=== PATIENT | male | born 1965 | race Hispanic/Latino ===

== ENCOUNTER 2018-11-02 03:40 | Inpatient (IN) | payer OTHER ==
[2018-11-02] MEDS ORDERED: Ondansetron PF 4 MG/2 ML Vial IVP PRN ×2 (06:33→07:50)
[2018-11-02] MEDS ORDERED: Ondansetron ODT 4 MG TAB SL PRN ×2 (06:33→07:50)
[2018-11-02] MEDS ORDERED: Dextrose 5 % And 0.9 % NaCl 1,000 ML IV SCH (06:45)
--- NOTE | 2018-11-02 06:56 | ULT ---
GALLBLADDER ULTRASOUND: CLINICAL HISTORY: Pain. FINDINGS: There is a nodular contour of the liver with a coarsened echotexture. No shadowing cholelithiasis. The gallbladder wall is thickened, measuring 4-5 mm. Hernandez sign is reported as positive. The commo n duct is normal at 2 mm in diameter. No ascites is seen. IMPRESSION: 1. Thickened gallbladder wall and positive Hernandez sign. No shadowing cholelithiasis. Correlate cli nically for signs/symptoms of cholecystitis. 2. Nodular contour of the liver. This can be seen in the setting of cirrhotic morphology. Recommen d appropriate clinical followup. POS: LISA
[2018-11-02 07:36] VITALS: BMI 33.0
[2018-11-02] MEDS ORDERED: Artificial Tears 18 DROP/0.9 ML EA EYE PRN (07:50)
[2018-11-02] MEDS ORDERED: Sodium Chloride 0.65% Nasal 44 ML BOT EA NARE PRN (07:50)
[2018-11-02] MEDS ORDERED: Calcium Carbonate 500 MG ChewTAB PO PRN (07:50)
[2018-11-02] MEDS ORDERED: HumaLOG 300 UNITS/3 ML VIAL SC PRN (07:50)
[2018-11-02] MEDS ORDERED: Bisacodyl 10 MG SUPP PR PRN (07:50)
[2018-11-02] MEDS ORDERED: hydrALAZINE 20 MG/ML VIAL SLOW IVP PRN (07:50)
[2018-11-02] MEDS ORDERED: Dextrose 5% in Water 1,000 ML IV PRN (07:50)
[2018-11-02] MEDS ORDERED: Senokot S 8.6-50 MG TAB PO PRN (07:50)
[2018-11-02] MEDS ORDERED: Dextrose 50% Abboject 50 ML SYRINGE SLOW IVP PRN (07:50)
[2018-11-02] MEDS ORDERED: Acetaminophen 325 MG TAB PO PRN (07:50)
[2018-11-02 08:27] LABS: INR-International Normal Ratio 1.1; PTT 34.6 SEC (22.9-36.1); Prothrombin Time 14.5 SEC (12.0-14.7)
[2018-11-02 08:36] LABS: ALT (SGPT) 42 U/L (8-55); AST (SGOT) 47 U/L (5-34); Albumin 3.5 g/dL (3.5-5.0); Alkaline Phosphatase 153 U/L (40-150); Anion Gap 9 mmol/L (10-20); BUN (Urea Nitrogen) 10 mg/dL (8.4-25.7); Bilirubin, Total 1.6 mg/dL (0.2-1.2); Calc. Creatinine Clearance 131 mL/min (70-130); Calcium 9.1 mg/dL (7.8-10.44); Carbon Dioxide 26 mmol/L (22-29); Chloride 105 mmol/L (98-107); Estimated GFR-MDRD Greater than 90; Globulin 3.7 g/dL (2.4-3.5); Glucose 210 mg/dL (70-105); Potassium 3.8 mmol/L (3.5-5.1); Protein, Total 7.2 g/dL (6.0-8.3); Sodium 136 mmol/L (136-145)
[2018-11-02] MEDS: Sodium Chloride 0.9% 1,000 ML IV SCH (08:47)
[2018-11-02] MEDS: Pantoprazole 40 MG VIAL IVP SCH ×2 (08:50→22:38)
[2018-11-02 08:52] LABS: #Eosinphils 0.1 thou/uL (0.0-0.7); #Lymphocytes 1.1 thou/uL (1.20-3.40); #Monocytes 0.4 thou/uL (0.11-0.59); #Neutrophils 4.2 thou/uL (1.40-6.50); %Basophils 0.2 % (0.0-1.0); %Eosinophils 1.3 % (0.0-10.0); %Monocytes 7.6 % (0.0-10.0); %Neutrophils 71.9 % (42.0-75.0); Hemoglobin 12.2 g/dL (14.0-18.0); MDiff Complete? YES; Mean Corpuscular HGB CONC 31.2 g/dL (32.0-36.0); Mean Corpuscular Hemoglobin 24.8 pg (27.0-31.0); Mean Corpuscular Volume 79.3 fL (78.0-98.0); Mean Platelet Volume 11.4 fL (7.4-10.4); Microcytosis SLIGHT = 6-15 cells (100X) (0-5/hpf); Platelet Count 69 thou/uL (130-400); Platelet Morphology Comment Appears Decreased; Polychromasia SLIGHT = 2-3 cells (100X) (0-2/hpf); Red Blood Cell (RBC) Count 4.92 mill/uL (4.70-6.10); White Blood Cell (WBC) Count 5.8 thou/uL (4.8-10.8)
[2018-11-02 08:54] LABS: HBSAg Index 0.31 S/CO (0-0.99); Hep A IgM AB Non-Reactive (NonReactive); Hep A IgM S/CO 0.13 S/CO (0-0.79); Hep B Surf Ag Non-Reactive S/CO (NonReactive)
[2018-11-02 10:07] LABS: HBCM Index 1.18 S/CO (0-0.79); Hep C IgG Ab Reflex HepC Qnt (NonReactive); Hepatitis B Core IgM Abs Equivocal (NonReactive)
[2018-11-02] MEDS: HumaLOG 300 UNITS/3 ML VIAL SC PRN (11:27)
--- NOTE | 2018-11-02 11:41 | HP ---
PRIMARY CARE PHYSICIAN: [facility] Call admission. REASON FOR ADMISSION: Transfer from [facility] for hematemesis. HISTORY OF PRESENT ILLNESS: A 53-year-old male, who has underlying history of previous alcoholism as well as chronic hepatitis C and cirrhosis of liver with portal hypertension, who was having abdominal pain predominantly in right upper quadrant, which was started yesterday. It was constant and sharp and the pain was increasing and that is why he decided to go to [facility], and subsequently, he was taken to [facility], where he was evaluated. Before coming to [facility] when he was in [facility], he had an episode of vomiting which was containing of blood and the patient also had black tarry stool as per him. The patient reports that 2 to 3 weeks ago, he went to [facility], where he had an EGD and banding was performed. He is supposed to go to followup yesterday, but he was not able to make it and he was brought to emergency room. In the emergency room, the patient had a CT of the abdomen which showed gallbladder wall thickening. He had abnormal LFT and subsequently, this patient was transferred to our emergency room and he was admitted to the surgical floor because of gallbladder wall thickening. When I saw this patient, he was not having any upper abdominal pain. He did not have any further hematemesis. He was hemodynamically stable. He was afebrile. REVIEW OF SYSTEMS: CONSTITUTIONAL: Negative for weight loss or gain, ability to conduct usual activities. SKIN: Negative for rash, itching. EYES: Negative for double vision, pain. ENT/MOUTH: Negative for nose bleeding, neck stiffness, pain, tenderness. CARDIOVASCULAR: Negative for palpitations, dyspnea on exertion, orthopnea. RESPIRATORY: Negative for shortness of breath, wheezing, cough, hemoptysis, fever or night sweats. GASTROINTESTINAL: Negative for poor appetite, abdominal pain, heartburn, nausea , vomiting, constipation, or diarrhea. GENITOURINARY: Negative for urgency, frequency, dysuria, nocturia. MUSCULOSKELETAL: Negative for pain, swelling. NEUROLOGIC/PSYCHIATRIC: Negative for anxiety, depression. ALLERGY/IMMUNOLOGIC: Negative for skin rash, bleeding tendency. Please see my HPI for pertinent positives and negatives. All other review of systems was reviewed and negative except as mentioned in HPI. PAST MEDICAL HISTORY: Hypertension, diabetes type 2, dyslipidemia, esophageal varices, gastroesophageal reflux disease, chronic hepatitis C, and obesity. PAST SURGICAL HISTORY: Esophageal varices banding. PAST PSYCHIATRIC HISTORY: Anxiety disorder and bipolar disorder. SOCIAL HISTORY: The patient has previous history of alcoholism, but he quit drinking in 2010. He also has a history of abused heroin. He quit everything when he was incarcerated and he was in shelter for almost 10 years. FAMILY HISTORY: cirrhosis of liver runs in his family. ALLERGIES: NO KNOWN DRUG ALLERGIES. CURRENT HOME MEDICATIONS: 1. Aspirin 81 mg daily. 2. Lasix 20 mg twice daily. 3. Lisinopril 10 mg daily. 4. Novolin insulin 30 units subcu daily. 5. Potassium chloride 10 mEq p.o. daily. 6. Pravastatin 40 mg p.o. nightly. EMERGENCY ROOM COURSE: The patient has been given IV fluid. PHYSICAL EXAMINATION: VITAL SIGNS: Currently, blood pressure 153/84, pulse 60, respiratory rate 20, temperature 98.1, and saturation 95% on room air. Weight 81.7 kg. GENERAL: The patient is currently alert, awake, and in no obvious acute distress. HEENT: Head; normocephalic and atraumatic. Eyes; pupils are round and reactive to light. Mild icterus noted. NECK: Supple. No JVD. No thyromegaly. No carotid bruit. No jugular venous distention. LUNGS: Clear to auscultation without any rhonchi or rales. CARDIAC: S1 and S2 regular. No murmur. No gallop. No rub. ABDOMEN: Soft. Obesity present. No obvious right upper quadrant tenderness. No Organomegaly. BACK: Examination unremarkable. No CVA tenderness. EXTREMITIES: Upper extremities; passive movement of all joints are normal. Lower extremities; no edema. Good distal pulsation. SKIN: No skin rash. The patient has multiple tattoos . NEUROLOGIC: Nonfocal examination. No asterixis. SIGNIFICANT LABORATORY DATA: Abdominal ultrasound showing thickened gallbladder wall. Positive Hernandez sign. CBC; WBC 5.8, hemoglobin 12.2, and platelets are 69. INR 1.1. BMP; sodium 136, potassium 3.8, chloride 105, carbon dioxide 26, anion gap 9, BUN 10, creatinine 0.75, glucose 210, calcium 9.1. LFT; AST 47, ALT 42, alkaline phosphatase 153, albumin 3.9. Hepatitis C positive. Hepatitis IgM equivocal. ASSESSMENT/PLAN: 1. Hematemesis with history of cirrhosis of liver and esophageal varices, required recent banding. Currently, hemoglobin is stable. We will consult caretaker resort. We will defer upper endoscopy and banding to caretaker resort. As the patient has underlying history of cirrhosis, we will give him prophylactic Rocephin to prevent SBP. The patient will be treated with octreotide drip and Protonix 40 mg IV b.i.d. 2. Right upper quadrant pain. The patient has gallbladder wall thickening, most likely related with chronic liver disease. I spoke with Dr. Wood and he is not thinking that this patient has any gallbladder problem. The patient does not have any fever. He does not have any chronic dyspepsia symptoms. We will ask GI for their opinion. We will control his pain with pain medication as needed. 3. Diabetes type 2. We will continue with insulin as per sliding scale per protocol. Diabetic diet will be given. We will resume his Novolin N 30 units subcu in the morning and 20 units in the evening. 4. Thrombocytopenia likely due to chronic hepatitis and cirrhosis. 5. Hypertension. We will continue lisinopril 10 mg p.o. daily. 6. Dyslipidemia. We will continue pravastatin 40 mg p.o. nightly. 7. Obesity with BMI of 33. Dietary education given. Weight loss education given. 8. Deep venous thrombosis prophylaxis. SCD boots. No Lovenox because of low platelet count. GI prophylaxis. The patient is already on Protonix therapy. CODE STATUS: The patient is full code. The patient does not have any surrogate decision maker. DISPOSITION PLAN: Based on clinical course and GI recommendation, plan of care discussed with the patient in detail. At this point, we will start with clear liquid diet. Job ID: [id number] [facility]
[2018-11-02] MEDS ORDERED: PROPOFOL 200 MG/20 ML VIAL ONE (12:00)
[2018-11-02] MEDS: cefTRIAXone\\ROCEPHIN 1 GM in Sodium Chloride 0.9% 100 ML IVPB SCH (12:21)
[2018-11-02] MEDS: Octreotide Acetate 1,250 MCG in Sodium Chloride 0.9% 250 ML 250 ML IVPB SCH (12:32)
[2018-11-02 13:42] LABS: Bilirubin Negative (Negative); Blood, Urine Negative (Negative); Clarity Turbid (Clear); Glucose, Urine (Dipstick) Normal (Negative); Leukocyte Negative Leu/uL (Negative); Nitrite Negative (Negative); Protein, Urine (Dipstick) Negative (Neg-Trace); RBC/HPF None Seen HPF (0-3)
[2018-11-02 13:58] LABS: Bacteria/HPF 4+ HPF (None Seen); Squamous Epithelial 0-3 HPF (0-3); WBC/HPF 0-3 HPF (0-3)
[2018-11-02] MEDS ORDERED: Promethazine HCl 25 MG/ML VIAL IM PRN (20:31)
[2018-11-02] MEDS ORDERED: Promethazine HCl 25 MG/ML VIAL SLOW IVP PRN (20:31)
[2018-11-02] MEDS ORDERED: Ondansetron HCl/PF 4 MG/2 ML Vial IVP PRN (20:31)
[2018-11-02] MEDS ORDERED: Ondansetron PF 4 MG/2 ML Vial ONE (20:32)
[2018-11-02] MEDS: Atorvastatin Calcium 10 MG TAB PO SCH (22:35)
[2018-11-02] MEDS: NPH, Human Insulin Isophane 300 UNIT/3 ML VIAL SQ SCH (22:36)
[2018-11-03] MEDS: Sodium Chloride 0.9% 1,000 ML IV SCH ×2 (01:40→17:05)
[2018-11-03] MEDS: HumaLOG 300 UNITS/3 ML VIAL SC PRN ×3 (06:31→17:05)
--- NOTE | 2018-11-03 06:43 | PRG ---
DATE OF SERVICE: 11/03/2018 HISTORY OF PRESENT ILLNESS: This is a 53-year-old Latin-[place]ib[place] male who is inmate at [facility]. He was admitted because of abdominal pain and also history of vomiting some blood. The patient told that he vomited a small amount of blood. He had an EGD done yesterday, which revealed no active bleeding. He is on IV octreotide. He is tolerating diet. He has no abdominal pain. No nausea. No vomiting. OBJECTIVE: GENERAL: Appears comfortable. VITAL SIGNS: Stable. Afebrile. Pulse is 63, blood pressure is 119/72. CARDIOVASCULAR SYSTEM/LUNGS: Within normal limits. ABDOMEN: Soft and very mildly tender. There is no rebound or guarding. RECOMMENDATIONS: 1. Taper of octreotide. 2. Consider discharge in next 24 hours. Job ID: [id number]
[2018-11-03] MEDS: NPH, Human Insulin Isophane 300 UNIT/3 ML VIAL SQ SCH ×2 (08:04→21:17)
[2018-11-03] MEDS: Lisinopril 10 MG TAB PO SCH (08:04)
[2018-11-03] MEDS: Pantoprazole 40 MG VIAL IVP SCH ×2 (08:04→21:09)
--- NOTE | 2018-11-03 08:18 | CON ---
DATE OF CONSULTATION: 11/02/2018 REASON FOR CONSULTATION: Abdominal pain, nausea, vomiting, and history of vomiting blood early this morning. HISTORY OF PRESENT ILLNESS: Mr. Nolan Islas is a 53-year-old Latin-Liberian male who was an inmate at [facility] in [place]. The patient has history of liver cirrhosis due to combination of alcohol abuse and chronic hepatitis C. He also has history of portal hypertension and esophageal varices in the past. He usually goes to [facility] for his medical care. He tells me he has had multiple EGDs in [place] over the years. The last one was done about 3 weeks ago. The patient was doing well until last night or early this morning. He started having severe abdominal pain over the epigastric area. He also felt nauseous and threw up only one time. He tells me the vomiting was a small amount of blood, no large volume. He has had no melena. He came to the ER of this hospital because of abdominal pain and also history of hematemesis. His blood count is reasonably stable except slightly low 12.2, hematocrit 39.1. His abdominal pain was sudden in onset, which began early this morning. The pain was in epigastric area. The pain was like sharp pain. He has had 1 time nausea and vomiting and vomited some small amount of blood. He has not had a stool today. He denies any dizziness, chest pain etc. No relevant history. MEDICAL ILLNESSES: 1. Liver cirrhosis, due to alcohol abuse and also chronic hep C. 2. Portal hypertension, esophageal varices with previous banding. OTHER MEDICAL ILLNESS: Include: 1. Hypertension. 2. Type 2 diabetes. 3. Hyperlipidemia. 4. Chronic acid reflux. 5. Obesity. 6. Chronic hep C. 7. Liver cirrhosis and esophageal varices. PSYCHIATRIC HISTORY: History of anxiety disorder and bipolar disorder. SOCIAL HISTORY: The patient lives in the jail probably over 10 years. He smoked before, but not anymore. He has had no alcohol over the past 10+ years. FAMILY HISTORY: Liver cirrhosis. ALLERGIES: NONE. MEDICATIONS: List reviewed, which include: 1. Aspirin. 2. Lasix. 3. Lisinopril. 4. Novolin insulin 30 units once daily. 5. Potassium chloride. 6. Pravastatin 40 once daily. REVIEW OF SYSTEMS: A 10-point system reviewed and remarkable for: Abdominal pain, nausea, vomiting and vomiting small amount of blood. Otherwise, he has , also abdominal pain has resolved and he has no more abdominal pain. PHYSICAL EXAMINATION: GENERAL: The patient is a well-built, muscular individual. He is obese, appears comfortable. ANAI: SIGNS: Pulse is 60, blood pressure is 150/84. Conjunctivae clear. NECK: Supple. No adenitis or thyromegaly noted. CARDIOVASCULAR: First and second heart sounds heard. LUNGS: Clear to auscultation. ABDOMEN: Soft. Abdomen is mildly tender over the epigastric area. There are no organomegaly or masses. No rebound or guarding. Bowel sounds normal. EXTREMITIES: Reveal no edema. MANAGER QUALITY IMPROVEMENT: No signs of encephalopathy. He is awake, alert, and communicative. He is a good historian. LABORATORY DATA: CBC; WBC 5800, hemoglobin 12.2, hematocrit 39.1, MCV 79.3, platelet count 69,000, polymorphs 71, lymphocytes 19, monocytes 7. Chemistry panel; sodium 136, potassium 3.8, chloride 105, bicarb 26, BUN is 10, creatinine 0.75, glucose is 210, calcium 9.1, bilirubin 1.6, AST 47, ALT 42, alkaline phosphatase 153, AFP 25.8, it is high. He had an abdominal sonogram done today here. The abdominal sonogram shows thickened gallbladder wall. No gallstones. Also the liver appears very nodular, he does have liver cirrhosis. CLINICAL IMPRESSION: A 53-year-old male with abdominal pain, nausea and vomiting. The abdominal pain has resolved. He has vomited a small amount of blood. He has had variceal banding about 3 weeks ago in [place]. Apparently, he has had some variceal banding done in the past. The current episode of bleeding appears to be very small. It is possible he could have some Antoinette-Zamora tear. The abdominal pain etiology is unclear as the abdomen films showed no gallstone, but thickened gallbladder wall. 1. Hypertension. 2. Diabetes. 3. Hyperlipidemia. 4. Liver cirrhosis. 5. Esophageal varices, status post banding. RECOMMENDATION: 1. Follow up H and H. 2. Emergent EGD later on today and I will make further recommendations. Job ID: [id number]
[2018-11-03 08:58] LABS: ALT (SGPT) 51 U/L (8-55); AST (SGOT) 61 U/L (5-34); Albumin 3.6 g/dL (3.5-5.0); Alkaline Phosphatase 122 U/L (40-150); Anion Gap 9 mmol/L (10-20); BUN (Urea Nitrogen) 10 mg/dL (8.4-25.7); Bilirubin, Total 1.7 mg/dL (0.2-1.2); Calc. Creatinine Clearance 114 mL/min (70-130); Calcium 9.2 mg/dL (7.8-10.44); Carbon Dioxide 28 mmol/L (22-29); Chloride 105 mmol/L (98-107); Estimated GFR-MDRD Greater than 90; Glucose 168 mg/dL (70-105); Potassium 4.4 mmol/L (3.5-5.1); Protein, Total 7.6 g/dL (6.0-8.3); Sodium 138 mmol/L (136-145)
[2018-11-03 09:04] LABS: #Eosinphils 0.1 thou/uL (0.0-0.7); #Lymphocytes 1.3 thou/uL (1.20-3.40); #Monocytes 0.5 thou/uL (0.11-0.59); #Neutrophils 3.6 thou/uL (1.40-6.50); %Basophils 0.7 % (0.0-1.0); %Eosinophils 2.5 % (0.0-10.0); %Lymphocytes 22.8 % (21.0-51.0); %Monocytes 9.4 % (0.0-10.0); %Neutrophils 64.5 % (42.0-75.0); Hemoglobin 12.6 g/dL (14.0-18.0); Mean Corpuscular HGB CONC 30.8 g/dL (32.0-36.0); Mean Corpuscular Hemoglobin 24.7 pg (27.0-31.0); Mean Corpuscular Volume 80.4 fL (78.0-98.0); Mean Platelet Volume 11.1 fL (7.4-10.4); Platelet Count 72 thou/uL (130-400); RBC Distribution Width 15.8 % (11.5-14.5); Red Blood Cell (RBC) Count 5.08 mill/uL (4.70-6.10); White Blood Cell (WBC) Count 5.5 thou/uL (4.8-10.8)
--- NOTE | 2018-11-03 11:14 | OP ---
DATE OF PROCEDURE: 11/02/2018 OPERATIVE PROCEDURE: Esophagogastroduodenoscopy. PREOPERATIVE DIAGNOSES: Abdominal pain, history of vomiting blood, and also history of esophageal varices. POSTOPERATIVE DIAGNOSES: 1. No active bleeding seen during endoscopy. 2. Esophageal varices nonbleeding and no stigmata of bleeding seen. 3. Portal gastropathy. DESCRIPTION OF PROCEDURE: The patient was placed on his left lateral position and was given sedation by Anesthesia Department. A Pentax video gastroscope under direct vision passed down to the oropharynx to the GE junction into the stomach and subsequently into the descending duodenum. The patient's esophagus appeared completely normal. He had no sign of bleeding seen. He does have does not show any stigmata of bleeding. . The GE junction, no pathology. The stomach was completely empty of any blood. Does have a for gastroparesis. The gastric fundus, no gastric varices seen. The gastric body and gastric antrum, no other pathology. The scope advanced to the duodenal bulb and descending duodenum. No pathology seen. The stomach decompressed and the scope removed. RECOMMENDATIONS: 1. Diet as tolerated. 2. Follow up H and H. 3. From GI standpoint, he can be discharged back to the [facility] in the next 24 hours. Job ID: [id number]
[2018-11-03] MEDS: cefTRIAXone\\ROCEPHIN 1 GM in Sodium Chloride 0.9% 100 ML IVPB SCH (11:23)
--- NOTE | 2018-11-03 11:33 | PDOC.PN ---
- Subjective Encounter Start Date: 11/03/18 Encounter Start Time: 07:10 Patient seen and examined. he has lower abdominal discomfort, no bleeding, No overnight events - Objective Resuscitation Status - Order Detail: 11/02/18 07:45 Resuscitation Status Routine Resuscitation Status: FULL: Full Resuscitation MAR Reviewed: Yes Vital Signs & Weight: Vital Signs (12 hours) Temp Pulse Resp BP BP Pulse Ox 11/03/18 11:30 98.1 F 76 18 132/82 91 L 11/03/18 08:04 145/92 H 11/03/18 07:43 97.6 F 60 18 145/92 H 90 L 11/03/18 04:23 98 F 63 16 119/72 94 L 11/03/18 00:00 97.9 F 62 16 121/78 93 L Weight Weight 181 lb I&O: 11/02/18 11/03/18 11/04/18 06:59 06:59 06:59 Intake Total 1585 860 Output Total 575 950 Balance 1010 -90 Result Diagrams: 11/03/18 08:20 11/03/18 08:20 Additional Labs: Accuchecks 11/03/18 11/03/18 11/02/18 10:34 06:32 22:37 POC Glucose 184 H 169 H 133 H 11/02/18 16:21 POC Glucose 124 H Phys Exam - Physical Examination Constitutional: NAD HEENT: moist MMs, sclera anicteric Neck: no JVD, supple Respiratory: no wheezing, no rales, no rhonchi Cardiovascular: RRR, no significant murmur, no rub Gastrointestinal: soft, no distention, positive bowel sounds lower abdominal subjective discomfort Musculoskeletal: no edema, pulses present Neurological: non-focal, normal sensation Lymphatic: no nodes Psychiatric: normal affect, A&O x 3 Skin: no rash, normal turgor Dx/Plan (1) Esophageal varices Code(s): I85.00 - ESOPHAGEAL VARICES WITHOUT BLEEDING Status: Acute (2) RUQ abdominal pain Code(s): R10.11 - RIGHT UPPER QUADRANT PAIN Status: Acute (3) Upper GI bleed Code(s): K92.2 - GASTROINTESTINAL HEMORRHAGE, UNSPECIFIED Status: Acute (4) Chronic hepatitis C Code(s): B18.2 - CHRONIC VIRAL HEPATITIS C Status: Chronic (5) Cirrhosis of liver Code(s): K74.60 - UNSPECIFIED CIRRHOSIS OF LIVER Status: Chronic (6) Diabetes type 2, controlled Code(s): E11.9 - TYPE 2 DIABETES MELLITUS WITHOUT COMPLICATIONS Status: Chronic (7) Dyslipidemia Code(s): E78.5 - HYPERLIPIDEMIA, UNSPECIFIED Status: Chronic (8) Obesity (BMI 30.0-34.9) Code(s): E66.9 - OBESITY, UNSPECIFIED Status: Chronic - Plan cont current plan of care * today will wean off octreotide drip * medication reviewed as below * symptomatic treatment * empiric rocephin * continue protonix * GI recommendation noted. Review of Systems - Review of Systems ENT: negative: Ear Pain, Ear Discharge, Nose Pain, Nose Discharge, Nose Congestion, Mouth Pain, Mouth Swelling, Throat Pain, Throat Swelling, Other Respiratory: negative: Cough, Dry, Shortness of Breath, Hemoptysis, SOB with Excertion, Pleuritic Pain, Sputum, Wheezing Cardiovascular: negative: chest pain, palpitations, orthopnea, paroxysmal nocturnal dyspnea, edema, light headedness, other Gastrointestinal: Abdominal Pain. negative: Nausea, Vomiting, Diarrhea, Constipation, Melena, Hematochezia, Other Genitourinary: negative: Dysuria, Frequency, Incontinence, Hematuria, Retention , Other Musculoskeletal: negative: Neck Pain, Shoulder Pain, Arm Pain, Back Pain, Hand Pain, Leg Pain, Foot Pain, Other Skin: negative: Rash, Lesions, Johan, Bruising, Other - Medications/Allergies Allergies/Adverse Reactions: Allergies Allergy/AdvReac Type Severity Reaction Status Date / Time peanut Allergy Intermediate Swollen Verified 11/02/18 07:38 Lips Medications: Current Medications Acetaminophen (Tylenol) 650 mg PO Q4H PRN PRN Reason: Headache/Fever/Mild Pain (1-3) Artificial Tears (Tears Naturale) 2 drop EA EYE PRN PRN PRN Reason: Dry Eyes Atorvastatin Calcium (Lipitor) 10 mg PO HS VAUGHN Last Admin: 11/02/18 22:35 Dose: 10 mg Bisacodyl (Dulcolax) 10 mg GA DAILYPRN PRN PRN Reason: Constipation Calcium Carbonate (Tums) 1,000 mg PO Q4H PRN PRN Reason: Heartburn or Indigestion Dextrose/Water (Dextrose 50%) 25 gm SLOW IVP PRN PRN PRN Reason: Hypoglycemia Glucagon (Glucagon) 1 mg IM PRN PRN PRN Reason: Hypoglycemia Hydralazine HCl (Apresoline) 10 mg SLOW IVP Q4H PRN PRN Reason: SBP > 180 and HR < 70 Dextrose/Water (D5w) 1,000 mls @ 0 mls/hr IV .Q0M PRN PRN Reason: Hypoglycemia Sodium Chloride (Normal Saline 0.9%) 1,000 mls @ 70 mls/hr IV .[id number] [facility] Last Admin: 11/03/18 01:40 Dose: Not Given Octreotide Acetate 1,250 mcg/ (Sodium Chloride) 251.25 mls @ 10.05 mls/hr IVPB INF [facility] Last Admin: 11/02/18 12:32 Dose: 251.25 mls Ceftriaxone Sodium 1 gm/ (Sodium Chloride) 100 mls @ 200 mls/hr IVPB 1200 [facility] Last Admin: 11/03/18 11:23 Dose: 100 mls Insulin Human Lispro (Humalog) 0 units SC .MODERATE SLIDING SC PRN PRN Reason: Moderate Correctional Scale Last Admin: 11/03/18 11:23 Dose: 2 unit Insulin Human Lispro (Humalog) 0 units SC .BEDTIME SLIDING SC PRN PRN Reason: Bedtime Correctional Scale Insulin Human NPH (Humulin N) 20 unit SQ QPM [facility] Last Admin: 11/02/18 22:36 Dose: 20 unit Insulin Human NPH (Humulin N) 30 unit SQ QAM [facility] Last Admin: 11/03/18 08:04 Dose: 30 unit Lisinopril (Zestril) 10 mg PO DAILY [facility] Last Admin: 11/03/18 08:04 Dose: 10 mg Ondansetron HCl (Zofran Odt) 4 mg SL Q6H PRN PRN Reason: Nausea/Vomiting Ondansetron HCl (Zofran) 4 mg IVP Q6H PRN PRN Reason: Nausea/Vomiting Pantoprazole Sodium (Protonix) 40 mg IVP Q12HR [facility] Last Admin: 11/03/18 08:04 Dose: 40 mg Senna/Docusate Sodium (Senokot S) 2 tab PO BID PRN PRN Reason: Constipation Last Admin: 11/03/18 08:05 Dose: 2 tab Sodium Chloride ([place] Nasal [place] 0.65%) 0 ml EA NARE QIDPRN PRN PRN Reason: Nasal Congestion Sodium Chloride (Flush - Normal Saline) 10 ml IVF Q12HR VAUGHN Last Admin: 11/03/18 08:05 Dose: Not Given Sodium Chloride (Flush - Normal Saline) 10 ml IVF PRN PRN PRN Reason: Saline Flush
[2018-11-03] MEDS: Octreotide Acetate 1,250 MCG in Sodium Chloride 0.9% 250 ML 250 ML IVPB SCH (13:49)
[2018-11-03] MEDS: Atorvastatin Calcium 10 MG TAB PO SCH (21:09)
[2018-11-04 07:20] VITALS: TEMP 97.8
[2018-11-04] MEDS: Sodium Chloride 0.9% 1,000 ML IV SCH (07:26)
[2018-11-04] MEDS: Pantoprazole 40 MG VIAL IVP SCH (09:31)
[2018-11-04] MEDS: Lisinopril 10 MG TAB PO SCH (09:31)
[2018-11-04] MEDS: NPH, Human Insulin Isophane 300 UNIT/3 ML VIAL SQ SCH (09:32)
[2018-11-04 10:11] LABS: HCV log10 5.988 (.); Hep C PCR-Quant 972000 IU/mL (.)
[2018-11-04 11:02] VITALS: BP 144/87
--- NOTE | 2018-11-04 11:15 | DIS ---
DATE OF ADMISSION: 11/02/2018 DATE OF DISCHARGE: 11/04/2018 DISCHARGE DISPOSITION: Skilled Nursing. PRIMARY DISCHARGE DIAGNOSES: 1. Right upper quadrant abdominal pain, resolved. 2. Upper gastrointestinal bleed. SECONDARY DISCHARGE DIAGNOSES: Esophageal varices, cirrhosis of liver, chronic hepatitis C, diabetes type 2, dyslipidemia, obesity. PRIMARY PROCEDURE/OPERATION: Upper endoscopy was performed by Dr. Segovia and found with nonbleeding esophageal varices. RADIOLOGICAL INVESTIGATION: Abdominal ultrasound showing cirrhotic liver. SIGNIFICANT LABORATORY DATA: Hemoglobin 12.6. INR 1.1. Creatinine 0.86. Urinalysis unremarkable. Hepatitis C positive. Stool for guaiac blood negative. DISCHARGE MEDICATIONS: 1. Aspirin 81 mg daily. 2. Lasix 20 mg b.i.d. 3. Novolin 30 units subcu in the morning and 20 units in the evening. 4. Lisinopril 10 mg daily. 5. Potassium chloride 10 mEq p.o. daily. 6. Pravastatin 40 mg p.o. at bedtime. 7. Pepcid 20 mg b.i.d. 8. Lactulose 20 g p.o. daily. CONTRAINDICATION: None. CODE STATUS: Full code. INPATIENT [place] MACHINE OPERATOR: Dr. Segovia was consulted while in hospital. TEST RESULT PENDING ON DISCHARGE: None. ALLERGIES: NO KNOWN DRUG ALLERGY. DISCHARGE PLAN: Posthospital, the patient will follow up with primary care physician in 1 or 2 weeks. HOSPITAL COURSE: A 53-year-old male who lives at the [facility], where he was complaining of right upper quadrant pain and he had episode of mild bleeding in vomitus and that is why he was evaluated at [facility] and subsequently, he was transferred to our hospital for admission. We treated him with IV Protonix, octreotide drip. We consulted Gastroenterology and they did upper endoscopy and found with a nonbleeding ulcer. Surprisingly, his guaiac was also negative. He did not have any further complaints while in hospital. His pain was resolved. His ultrasound showed gallbladder wall thickening which is related with cirrhosis. We consulted General Surgery and they recommended that this patient does not need any General Surgery consultation. This patient has chronic hepatitis C and cirrhosis from alcohol and hepatitis C. We added lactulose on his regimen and Pepcid on his regimen. Rest of medication will be continued as per previous. He is stable for discharge. Gastroenterology cleared him for discharge as well. I have seen and examined the patient at bedside today. His examination has not changed from yesterday. Job ID: [id number]
== END 2018-11-04 11:30 | DRG 378 ==
LOC: ERS 03:40 → EEVIPCON 03:40 → SURG A 06:36
PROVIDERS: ADMIT Family Medicine; ATTEND Family Medicine
PROC: 0DJ08ZZ Inspection of Upper Intestinal Tract, Via Natural or Artificial Opening Endoscopic (ICD-10-PCS; principal; 2018-11-02)
DX: K92.2 Gastrointestinal hemorrhage, unspecified (principal); K76.6 Portal hypertension; K70.30 Alcoholic cirrhosis of liver without ascites; I85.10 Secondary esophageal varices without bleeding; E11.9 Type 2 diabetes mellitus without complications; I10 Essential (primary) hypertension; E78.5 Hyperlipidemia, unspecified; K21.9 Gastro-esophageal reflux disease without esophagitis; F41.9 Anxiety disorder, unspecified; F31.9 Bipolar disorder, unspecified; B18.2 Chronic viral hepatitis C; K31.89 Other diseases of stomach and duodenum; D69.6 Thrombocytopenia, unspecified; E66.9 Obesity, unspecified; Z68.33 Body mass index [BMI] 33.0-33.9, adult; Z87.891 Personal history of nicotine dependence; Z79.82 Long term (current) use of aspirin; Z79.4 Long term (current) use of insulin; Z79.899 Other long term (current) drug therapy
CPT/HCPCS: 36415; 36416; 76705; 80053; 80074; 81001; 82105; 82274; 85025; 85610; 85730; 87522; 96360; C9113; J0696; J1815; J2354; J2405; J2704; J3490; J7050